=== PATIENT | male | born 1960 | race Caucasian/White ===

== ENCOUNTER 2019-08-26 07:45 | Day surgery (SDC) | payer OTHER ==
[2019-08-24 10:53] LABS: BASOPHILS # (AUTO) 0.1 X10'3 (0-0.2); BASOPHILS % (AUTO) 0.8 % (0-1); EOSINOPHILS # (AUTO) 0.1 X10'3 (0-0.9); EOSINOPHILS % (AUTO) 1.4 % (0-6); LYMPHOCYTES # (AUTO) 1.9 X10'3 (1.1-4.8); LYMPHOCYTES % (AUTO) 21.1 % (21-51); MEAN CORPUSCULAR HEMOGLOBIN 29.9 PG (27.0-31.0); MEAN CORPUSCULAR HGB CONC 34.1 g/dL (33.0-36.5); MEAN CORPUSCULAR VOLUME 87.6 FL (78-98); MONOCYTES # (AUTO) 0.9 X10'3 (0-0.9); MONOCYTES % (AUTO) 10.5 % (2-12); NEUTROPHILS # (AUTO) 5.9 X10'3 (1.8-7.7); NEUTROPHILS % (AUTO) 66.2 % (42-75); PRE OP HEMATOCRIT 45.5 % (42.0-52.0); PRE OP HEMOGLOBIN 15.5 g/dL (14.0-17.9); PRE OP PLATELET COUNT 275 X10'3 (140-440); RED BLOOD COUNT 5.19 X10'6 (4.70-6.10); RED CELL DISTRIBUTION WIDTH 12.6 % (11.5-14.5)
[2019-08-24 11:03] LABS: ALBUMIN 3.9 G/DL (3.4-5.0); ALBUMIN/GLOBULIN RATIO 1.1 (1.1-1.5); ALKALINE PHOSPHATASE 62 IU/L (46-116); BLOOD UREA NITROGEN 10 MG/DL (7-18); BUN/CREATININE RATIO 11.4 (5.4-32.0); CALCIUM 9.4 MG/DL (8.5-10.1); CHLORIDE 104 MMOL/L (99-107); CREATININE 0.88 MG/DL (0.60-1.10); PRE OP ALT 24 U/L (30-65); PRE OP ANION GAP 8 (8-16); PRE OP AST 18 U/L (10-37); PRE OP BILIRUB, TOTAL 0.6 MG/DL (0.0-1.0); PRE OP GLUCOSE 84 MG/DL (70-104); PRE OP POTASSIUM 4.5 MMOL/L (3.4-5.1); PRE OP SODIUM 139 MMOL/L (135-145); TOTAL CARBON DIOXIDE 27.5 MMOL/L (24-32); TOTAL PROTEIN 7.6 G/DL (6.4-8.2); eGFR 88 ML/MIN
[2019-08-26] VITALS (15 sets, daily range): BP systolic 132–161; BP diastolic 73–102
[~2019-08-26] VITALS: Ht 188 cm; Wt 91.5 kg
[~2019-08-26 07:45] MED LIST: LISI10TA4 PO; MULT-1141 PO; cefazolin/dext.iso 2gm/50ml 50 ML IV ONE; famotidine 20mg tablet PO ONE; ringers solution, lacted 1,000 ML IV SCH
[2019-08-26] MEDS ORDERED: BUPIVAcaine/PF 2.5 mg/ml (0.25%) 30ml vial ONE (11:53)
[2019-08-26] MEDS ORDERED: ceFAZolin 1000mg inj ONE (11:53)
[2019-08-26] MEDS ORDERED: midazolam 2 mg/2 ml injection ONE (13:38)
[2019-08-26] MEDS ORDERED: fentaNYL /PF 50mcg/ml 5ml ampule ONE (13:39)
[2019-08-26] MEDS ORDERED: propofol inj 20 ML IV ONE (13:59)
[2019-08-26] MEDS ORDERED: ondansetron/PF 4mg/2ml inj ONE (14:00)
[2019-08-26] MEDS ORDERED: LIDOcaine 2% (20mg/ml) 5ml vial ONE (14:00)
[2019-08-26] MEDS ORDERED: dexamethasone sod phosphate 4mg/ml inj. ONE (14:00)
[2019-08-26] MEDS ORDERED: ringers solution, lacted 1,000 ML IV SCH (14:06)
[2019-08-26] MEDS ORDERED: morphine 2 MG/ML inj. syringe IV PRN (14:10)
[2019-08-26] MEDS ORDERED: meperidine/PF 25mg/ml syringe IV PRN ×3 (14:10)
[2019-08-26] MEDS ORDERED: morphine 4 MG/ML inj SYRINge IV PRN (14:10)
[2019-08-26] MEDS ORDERED: proCHLORperazine 10 MG/2 ml inj IV PRN (14:10)
[2019-08-26] MEDS ORDERED: ondansetron/PF 4mg/2ml inj IV PRN (14:10)
[2019-08-26] MEDS ORDERED: neostigmine methylsulfate 1 MG/ML 10ml vial ONE (14:40)
[2019-08-26] MEDS ORDERED: glycopyrrolate 0.2mg/ml inj ONE (14:40)
[2019-08-26] MEDS ORDERED: labetalol 20mg/4ml (5mg/ml) syringe IV ONE (14:42)
[2019-08-26] MEDS ORDERED: sugammadex 200mg/2ml injection IV ONE (14:50)
--- NOTE | 2019-08-26 14:55 | NUR ---
Received from OR via BED , accompanied by Anesthesiologist DR OLIVO and report given by Anesthesiolgist. PATIENT WAKING UP, DENIES PAIN, V/S WNL, NEUROVASCULAR CHECKS INTACT, 20G PIV LUE, SCD ON, BANDAIDS TO LAP SIGHTS OF ABDOMEN CDI.
[2019-08-26] MEDS ORDERED: ketorolac trometh. 30mg/ml inj. IV ONE (15:00)
[2019-08-26] MEDS ORDERED: hydrALAZINE 20mg/ml inj. IV PRN (15:00)
[2019-08-26] MEDS ORDERED: labetalol 20mg/4ml (5mg/ml) syringe IV PRN (15:00)
[2019-08-26] MEDS ORDERED: HYDROcodone/acetaminophen 10/325mg tab PO ONE (15:35)
--- NOTE | 2019-08-26 17:48 | NUR ---
PATIENT UNABLE TO VOID, WATER ENCOURAGED
[2019-08-26] MEDS ORDERED: LIDOcaine 2% 10ml TOPICAL JELLY (Urojet) MM ONE (19:00)
--- NOTE | 2019-08-26 19:00 | NUR ---
PATIENT WAS UNABLE TO URINATE AND WAS BLADDER SCANNED FOR 450CC. A WORRELL WAS PLACED PER DR LIAO ORDERS PER [employer]. HE WAS THEN EDUCATED HOW TO CARE FOR HIS WORRELL AND CLEAN AND EMPTY IT AND ALL ASPECTS OF MANAGMENT AND ADVIZED TO CALL DR LIAO OFFICE IF HE HAD ANY ISSUES AND TO HAVE IT D/C THERE ON SATURDAY PER DR LIAO. PATIENT VERBALIZED UNDERSTANDING OF THESE THINGS AND ALL D/C INSTRUCTIONS AND DEMO HOW TO EMPTY F/C FOR ME PRIOR TO DISCHARGE WITH 480CC EMPTIED. HIS V/S WERE STABLE AND PIV WAS D/C. DRESSINGS TO HIS ABDOMEN WERE CDI. HE WAS D/C HOME WITH ALL BELONGINGS AND IS AWARE OF HIS [employer] SCRIPT SENT TO HIS [facility].
== END 2019-08-26 19:00 | disposition home or self-care (01) ==
LOC: PAS 07:45
PROVIDERS: ATTEND Surgery
DX: K42.0 Umbilical hernia with obstruction, without gangrene (principal); I10 Essential (primary) hypertension; Z72.89 Other problems related to lifestyle; Z79.899 Other long term (current) drug therapy; Z85.47 Personal history of malignant neoplasm of testis
CPT/HCPCS: 36415; 49653; 80053; 82948; 85025; 93005; C9399; J0690; J1100; J1885; J2001; J2175; J2250; J2405; J2704; J2710; J3010; J3490; A4215; A4618; A7000; C1758; C1781; J7120